=== PATIENT | female | born 1960 | race Caucasian/White ===

== ENCOUNTER 2018-04-02 13:19 | Emergency (ER) | payer OTHER ==
[~2018-04-02] VITALS: Ht 162.6 cm; Wt 63.6 kg
[~2018-04-02 13:19] MED LIST: ALPR.25 PO; AMBI5TAB PO; LEVO.075 PO; METF500T PO
[2018-04-02 13:33] VITALS: BP 114/70; PULSE 80; RESP 16; TEMP 99.1; O2SAT 100
[2018-04-02] MEDS ORDERED: FLUO10TA PO (13:57)
[2018-04-02] MEDS ORDERED: HYDR12.57 PO (13:57)
--- NOTE | 2018-04-02 14:24 | PD ---
HPI Chief Complaint: GI Complaint Time Seen by Provider: 13:42 Travel History International Travel<30 days: No Contact w/Intl Traveler<30days: No Traveled to known affect area: No History of Present Illness HPI This is a 58-year-old female who presents to the emergency department with abdominal discomfort predominantly in the lower abdomen radiating to the back, constant, mild, associated with some bright red blood in her stools intermittently. She was seen at an urgent care earlier this week and had a urinalysis was demonstrated some trace abnormality and she was prescribed an antibiotic but she did not take it. She is also been feeling very nauseous throughout the week but has had no vomiting, fevers or chills. She does have a family history of colon cancer and had a colonoscopy several years ago which was normal. PFSH Past Medical History Hx Anticoagulant Therapy: No Anxiety: Yes Cancer: No Cardiovascular Problems: Yes Chemotherapy: No Chest Pain: Yes Cerebrovascular Accident: Yes Diabetes: Yes Patient Takes Glucophage: Yes Endocrine: Yes Genitourinary: No Hypertension: Yes Immune Disorder: No Insomnia: Yes Musculoskeletal: Yes Neurologic: Yes Reproductive: No Respiratory: No Thyroid Disease: Yes (Hypo- Ashwini's ) Tetanus Vaccination: Unknown Influenza Vaccination: No ?: Not Menopausal: Yes Past Surgical History Hysterectomy: No Pacemaker: No Tonsillectomy: Yes Other Surgery: Yes (Nose) Social History Alcohol Use: Yes (Socially) Tobacco Use: No (Denies today) Substance Use: No (OCCASIONAL MARIJUANA USE) Allergies-Medications (Allergen,Severity, Reaction): Coded Allergies: codeine (Verified Adverse Reaction, Intermediate, Headache, 04/02/18) Reported Meds & Prescriptions Reported Meds & Active Scripts Active Reported Fluoxetine (Fluoxetine HCl) 10 Mg Tab Unknown Dose PO DAILY Hydrochlorothiazide 12.5 Mg Cap Unknown Dose PO DAILY Xanax (Alprazolam) 0.25 Mg Tab 0.25 Mg PO Q8H PRN Synthroid (Levothyroxine Sodium) 75 Mcg Tab 75 Mcg PO DAILY Metformin (Metformin HCl) 500 Mg Tab 500 Mg PO BIDPC With meals Ambien (Zolpidem Tartrate) 5 Mg Tab 5 Mg PO HS PRN Review of Systems Except as stated in HPI: all other systems reviewed are Neg Physical Exam Narrative GENERAL:Well appearing, no acute distress SKIN: Focused skin assessment warm and dry. HEAD: Atraumatic. Normocephalic. EYES: Pupils equal and round. No injection or drainage. ENT: Moist mucous membranes NECK: Trachea midline. CARDIOVASCULAR: Regular rate and rhythm. No murmur appreciated. RESPIRATORY: Clear to auscultation. Breath sounds equal bilaterally. GASTROINTESTINAL: Abdomen soft, mildly tender to palpation in the right and left lower abdomen with no rebound or guarding. Skin tag at 5:00 on the rectum with an external hemorrhoid visualized. MUSCULOSKELETAL: No obvious deformities. NEUROLOGICAL: Awake and alert. No obvious cranial nerve deficits. Moving all extremities. PSYCHIATRIC: Appropriate mood and affect; insight and judgment normal. Data Data Last Documented VS Vital Signs Date Time Temp Pulse Resp B/P (MAP) Pulse Ox O2 Delivery O2 Flow Rate FiO2 04/02/18 13:33 99.1 80 16 114/70 (85) 100 Orders Orders Complete Blood Count With Diff (04/02/18 13:43) Comprehensive Metabolic Panel (04/02/18 13:43) Urinalysis - C+S If Indicated (04/02/18 14:02) Labs Laboratory Tests Test 04/02/18 14:23 White Blood Count 6.7 TH/MM3 Red Blood Count 4.44 MIL/MM3 Hemoglobin 13.9 GM/DL Hematocrit 41.1 % Mean Corpuscular Volume 92.6 FL Mean Corpuscular Hemoglobin 31.4 PG Mean Corpuscular Hemoglobin Concent 33.9 % Red Cell Distribution Width 11.8 % Platelet Count 239 TH/MM3 Mean Platelet Volume 8.3 FL Neutrophils (%) (Auto) 53.6 % Lymphocytes (%) (Auto) 36.1 % Monocytes (%) (Auto) 7.7 % Eosinophils (%) (Auto) 1.2 % Basophils (%) (Auto) 1.4 % Neutrophils # (Auto) 3.6 TH/MM3 Lymphocytes # (Auto) 2.4 TH/MM3 Monocytes # (Auto) 0.5 TH/MM3 Eosinophils # (Auto) 0.1 TH/MM3 Basophils # (Auto) 0.1 TH/MM3 CBC Comment DIFF FINAL Differential Comment Urine Collection Type CLEAN CATCH Urine Color STRAW Urine Turbidity CLEAR Urine pH 6.0 Urine Specific [place] 1.010 Urine Protein NEG mg/dL Urine Glucose (UA) NEG mg/dL Urine Ketones NEG mg/dL Urine Occult Blood NEG Urine Nitrite NEG Urine Bilirubin NEG Urine Urobilinogen 0.2 MG/DL Urine Leukocyte Esterase SMALL Urine WBC 0-2 /hpf Urine Squamous Epithelial Cells 0-3 /hpf Urine Transitional Epithelial Cells 0-2 /hpf Microscopic Urinalysis Comment CULT NOT INDICATED Blood Urea Nitrogen 21 MG/DL Creatinine 0.77 MG/DL Random Glucose 92 MG/DL Total Protein 7.5 GM/DL Albumin 4.2 GM/DL Calcium Level 9.5 MG/DL Alkaline Phosphatase 59 U/L Aspartate Amino Transf (AST/SGOT) 18 U/L Alanine Aminotransferase (ALT/SGPT) 21 U/L Total Bilirubin 0.6 MG/DL Sodium Level 139 MEQ/L Potassium Level 3.9 MEQ/L Chloride Level 100 MEQ/L Carbon Dioxide Level 29.0 MEQ/L Anion Gap 10 MEQ/L Estimat Glomerular Filtration Rate 77 ML/MIN MDM Medical Decision Making Medical Screen Exam Complete: Yes Emergency Medical Condition: Yes Interpretation(s) Temperature is 99.1, no tachycardia, normotensive No leukocytosis Electrolytes are reassuring Urinalysis is negative for infection Differential Diagnosis Colitis, diverticulitis, colon cancer, AVM, hemorrhoids Narrative Course This is a 58-year-old female who presents to the emergency department with some nonspecific abdominal discomfort and 2 episodes of bright red blood per rectum. She is very well-appearing and has a benign abdomen. Labs are reassuring. Hemoccult was negative. I think she is appropriate for outpatient follow-up with her primary care physician and likely colonoscopy. [facility] Point of Care Internal Pos. & Neg. Controls: Passed Fecal Specimen Occult Blood: Negative Diagnosis Primary Impression: Bright red blood per rectum Patient Instructions: General Instructions Additional Instructions: If you develop severe or worsening abdominal pain, lightheadedness, dizziness, fever>100.4, persistent vomiting or inability to eat or drink return to the emergency department immediately. Follow up with your primary care physician in 1-2 days for a check-up. Med/Other Pt SpecificInfo: No Change to Meds Disposition: 01 DISCHARGE HOME Condition: Stable Ya Mulligan MD Apr 02, 2018 14:24
[2018-04-02 14:31] LABS: AUTOMATED NEUTROPHIL # 3.6 TH/MM3 (1.8-7.7); BASOPHIL # 0.1 TH/MM3 (0-0.2); BASOPHIL % 1.4 % (0.0-2.0); EOSINOPHIL # 0.1 TH/MM3 (0-0.4); EOSINOPHIL % 1.2 % (0.0-4.0); HEMATOCRIT 41.1 % (35.0-46.0); HEMOGLOBIN 13.9 GM/DL (11.6-15.3); LYMPH % 36.1 % (9.0-44.0); LYMPHOCYTE # 2.4 TH/MM3 (1.0-4.8); MEAN CELL VOLUME 92.6 FL (80.0-100.0); MEAN CORPUSCULAR HEMOGLOBIN 31.4 PG (27.0-34.0); MEAN CORPUSCULAR HGB CONC 33.9 % (32.0-36.0); MEAN PLATELET VOLUME 8.3 FL (7.0-11.0); MONO % 7.7 % (0.0-8.0); MONOCYTE # 0.5 TH/MM3 (0-0.9); NEUT % 53.6 % (16.0-70.0); PLATELET COUNT 239 TH/MM3 (150-450); RED BLOOD COUNT 4.44 MIL/MM3 (4.00-5.30); RED CELL DISTRIBUTION WIDTH 11.8 % (11.6-17.2); WHITE BLOOD COUNT 6.7 TH/MM3 (4.0-11.0)
[2018-04-02 14:32] LABS: BILIRUBIN, URINE NEG (NEG); BLOOD, URINE NEG (NEG); GLUCOSE,URINE NEG (NEG); KETONE, URINE NEG (NEG); NITRITE,URINE NEG (NEG); URINE LEUKOCYTE ESTERASE SMALL (NEG)
[2018-04-02 14:35] LABS: URINE COLOR STRAW (YELLW/STRAW)
[2018-04-02 14:44] LABS: WBC, URINE 0-2 /hpf (0-5)
[2018-04-02 14:45] LABS: SQUAMOUS EPITHELIAL CELL URINE 0-3 /hpf (0-5); TRANSITIONAL EPI CELLS, URINE 0-2 /hpf
[2018-04-02 15:22] LABS: CHLORIDE 100 MEQ/L (98-107); SODIUM (NA) 139 MEQ/L (136-145)
[2018-04-02 15:28] LABS: CALCIUM 9.5 MG/DL (8.5-10.1)
[2018-04-02 15:29] LABS: ALBUMIN 4.2 GM/DL (3.4-5.0); BLOOD UREA NITROGEN 21 MG/DL (7-18); GLUCOSE,RANDOM 92 MG/DL (74-106)
[2018-04-02 15:32] LABS: ALT (GPT) 21 U/L (10-53); AST (GOT) 18 U/L (15-37); CREATININE 0.77 MG/DL (0.50-1.00); GLOMERULAR FILTRATION RATE 77 ML/MIN (>89)
[2018-04-02 15:33] LABS: TOTAL BILIRUBIN ADULT 0.6 MG/DL (0.2-1.0)
[2018-04-02 15:34] LABS: TOTAL PROTEIN 7.5 GM/DL (6.4-8.2)
[2018-04-02 15:35] LABS: ALKALINE PHOSPHATASE 59 U/L (45-117)
[2018-04-02 16:20] VITALS: BP 114/74; PULSE 72; RESP 12; O2SAT 99
== END 2018-04-02 16:20 | disposition home or self-care (01) ==
LOC: PHED 13:19
DX: K62.5 Hemorrhage of anus and rectum (principal); E06.3 Autoimmune thyroiditis; E11.9 Type 2 diabetes mellitus without complications; I10 Essential (primary) hypertension; G47.00 Insomnia, unspecified; Z79.84 Long term (current) use of oral hypoglycemic drugs
CPT/HCPCS: 80053; 81001; 85025; 99283